=== PATIENT | male | born 1940 | race Caucasian/White ===

== ENCOUNTER 2022-07-24 08:21 | Emergency (ER) | payer MEDICARE, OTHER, SELFPAY ==
[2022-07-24] VITALS (19 sets, daily range): BP systolic 101–153; BP diastolic 51–87; PULSE 37–144; RESP 12–16; TEMP 36.7; O2SAT 96–99
--- NOTE | 2022-07-24 09:15 | DI.RAD_ITS ---
Exam(s) XR SHOULDER RT COMPLETE 2+V EXAM: XR SHOULDER RT COMPLETE 2+V CLINICAL HISTORY: right shoulder pain. TECHNIQUE: 2D digital imaging was performed. COMPARISON: No exams were available for comparison FINDINGS: Six views No evidence of acute fracture or dislocation. No soft tissue calcifications. There is mild diminuti on of the subacromial space and there is also slight upward subluxation of the humeral head in the gl enoid fossa.. This may indicate presence of significant rotator cuff pathology-tear. There are smal l degenerative cysts in the greater tuberosity. No osteophytes. No glenohumeral joint space narrowi ng and the AC joint appears unremarkable. IMPRESSION: No fracture or dislocation. Subtle indirect signs of possible rotator cuff pathology. DATA REPOSITORY: RADIATION DOSE DELIVERED:
--- NOTE | 2022-07-24 09:15 | RT.EKG_ITS ---
APPROVED REPORT Exam: Resting ECG Reason for Exam: bradycardia Patient Location: E HR:39 bpm ECG Measurements Heart Rate 39 AXIS OR 185 P 9 QRSd 148 QRS 15 QT 473 T 4 QTc 381 Conclusion Sinus bradycardia...rate< 60 Right bundle branch block...QRSd>120, terminal axis(90,270). Sinus. RBBB. No STEMI. I have reviewed and interpreted ECG and agree with software generated interpretation.
[2022-07-24 09:49] LABS: Abs Immature Grans 0.14 10^3/uL (0.0-0.06); Absolute Eosinophil Count 0.01 10^3/uL (0.0-0.7); Absolute Lymphocyte Count 1.16 10^3/uL (1.2-3.4); Absolute Monocyte Count 0.65 10^3/uL (0.1-0.8); Absolute Neutrophil Count 0.97 10^3/uL (1.2-6.7); Eosinophils % 0.3; HCT 33.6 % (40.0-50.0); Immature Grans % 4.8; Lymphocytes % 39.6; MCHC 32.7 % (32.0-36.0); MCV 107 fL (80-95); MPV 11.9 fL (8.0-11.0); Monocytes % 22.2; Neutrophils % 33.1; RBC 3.14 10^6/uL (4.36-5.78); RDW-SD 54.7 fL; WBC 2.93 10^3/uL (4.4-10.8)
[2022-07-24 10:09] LABS: ALT 22 U/L (16-63); AST 19 U/L (15-37); Albumin 3.8 g/dL (3.4-5.0); Alkaline Phosphatase 47 U/L (46-116); Anion Gap 4.6 mmol/L (3-11); BUN 19 mg/dL (7-18); Bilirubin, Total 0.4 mg/dL (0.2-1.0); CO2 33.4 mmol/L (21.0-32.0); Calcium 9.5 mg/dL (8.5-10.1); Chloride 103 mmol/L (98-107); Estimated GFR 74.68 (mL/min/1.73m2); Glucose 79 mg/dL (74-106); Magnesium 1.8 mg/dL (1.8-2.4); Potassium 3.8 mmol/L (3.5-5.1); Sodium 141 mmol/L (136-145); Total Protein 7.5 g/dL (6.4-8.2)
[2022-07-24 10:22] LABS: Diff Comment RBC Morph Reviewed; Platelet Count 97 10^3/uL (130-400)
[2022-07-24 10:23] LABS: Anisocytosis 1+; Basophilic Stippling Present; Macrocytosis 2+; Polychromasia Present
--- NOTE | 2022-07-24 10:34 | DI.VRAD_ITS ---
PROCEDURE INFORMATION: Exam: XR Right Shoulder Exam date and time: 07/24/2022 10:05 AM Age: 82 years old Clinical indication: Other: Right shoulder pain TECHNIQUE: Imaging protocol: Radiologic exam of the Right shoulder. Views: 2 or more views. COMPARISON: No relevant prior studies available. FINDINGS: Bones/joints: Glenohumeral and acromioclavicular joints are intact. Acromial humeral interval is maintained. Soft tissues: Normal. No calcification. IMPRESSION: Normal shoulder Dictated and Authenticated by: Hugo Martinez MD. Ordering:NATALIE Borges MD
--- NOTE | 2022-07-24 10:47 | ED.GENADUL_ITS ---
Discharge Plan Disposition Patient Disposition: HOME Condition: Stable Discharge Details Clinical Impression: Cervical radiculopathy at C8, Acute shoulder pain, Bradycardia, Anemia Primary Care Provider: None,None ED Provider: Katerina Meza Home Meds and New Rx's Prescriptions: New dexamethasone [Decadron] 4 mg tablet 4 mg PO DAILY Qty: 5 0RF Continued aspirin 81 mg Tablet,Delayed Release (Dr/Ec) 81 mg PO DAILY AM rosuvastatin [Crestor] 10 mg Tablet 10 mg PO DAILY Spiriva with HandiHaler 18 mcg Capsule, W/Inhalation Device 1 cap INHALATION DAILY fenofibrate 150 mg Capsule 150 mg PO DAILY AM fluocinonide 0.05 % Ointment TOPICAL PRN PRN memantine 10 mg Tablet 10 mg PO HS [id number]-epa-fish oil 350-400 mg Capsule 1,000 PO DAILY AM B12 5,000-100 mcg Lozenge 1 siria SUBLINGUAL DAILY AM acetaminophen 325 mg Tablet 650 mg PO PRN PRN albuterol sulfate [Ventolin HFA] 90 mcg/actuation Hfa Aerosol Inhaler 2 puff INHALATION PRN PRN Discontinued metoprolol succinate [Toprol XL] 25 mg Tablet Extended Release 24 Hr 25 mg PO DAILY AM Rx Instructions: pt is taking 1/2 tab Discharge Instructions Instructions: Anemia (ED), Shoulder Pain (ED) Additional Instructions: Not taking your Toprol, this is causing her heart rate and blood pressure to be very low and probably contributing to your lightheadedness Use caution when going from sitting to standing Take Decadron as prescribed, I suspect you have a herniated disc You will need to establish care with a provider here, is very importantly have outpatient reassessment Apply for Voltaren gel to your shoulder and take Tylenol 650 mg every 4-6 hours as needed for discomfort. Continue to range her shoulder so it does not become stiff Should he develop worsening symptoms, chest pain, shortness of breath, please return immediately to the emergency department for Recommend checking your blood pressure and your pulse daily until you have your an appointment with your doctor on Monday. Medical Decision Making Patient appears well, he is ambulatory with heart rate in the 60s although he is quite bradycardic in the emergency department, I suspect by that he this is why he has been lightheaded for the past several months as he dips down as low as 38, he is asymptomatic with this Will remove the Toprol from his medication list, he took a dose today, he will not continue this His labs are reassuring when compared to his labs drawn in June at [facility] I suspect that his symptoms are related to a cervical radiculopathy given his intermittent fourth and fifth digit involvement Placed on steroids, he will use Voltaren gel, he will take Tylenol as needed for discomfort Is given low threshold to return should he have new or worsening complaints Will need close outpatient follow-up with PCP, has televisit with his PCP in [place] on Monday Have placed him on the PCP follow-up with Have an appointment with his scientific associate within the next month Discharged home and her son and all conversations were had and presents with bone Medical Records Medical records reviewed: Yes I reviewed the patient's medical records. Lab Data Lab results reviewed: Yes I reviewed the patient's lab results. HPI General Date/Time Provider Initiated Documentation: 07/24/22 08:36 . HPI Narrative: This 82-year-old male presents with report of right shoulder pain for the past week. He denies any known trauma. He has had intermittent tingling to his fourth and fifth digits that are largely exacerbated when he does repetitive motion with the affected hand. He denies any weakness, chest pain, shortness of breath. He has intermittent lightheadedness that he is reporting for the past several months. He states that he called his doctor about this and was taken off Crestor last week. He states he is not had symptoms for approximately a week. She does state that he has an appointment on Monday and has been keeping track of his blood pressure and pulse because they have been low over the course of the past several months. He is still taking his Toprol as prescribed. Again is denying any symptoms currently aside from some pain to his right shoulder. Related Data Home Medications Medication Instructions Recorded Confirmed acetaminophen 325 mg tablet 650 mg PO PRN PRN 07/24/22 07/24/22 albuterol sulfate 90 mcg/actuation 2 puff inhalation PRN PRN 07/24/22 07/24/22 aerosol inhaler (Ventolin HFA) aspirin 81 mg tablet,delayed 81 mg PO DAILY AM 07/24/22 07/24/22 release cyanocobalamin (B12)-cobamamide 1 siria sublingual DAILY AM 07/24/22 07/24/22 5,000 mcg-100 mcg sublingual lozenge (B12) dexamethasone 4 mg tablet 4 mg PO DAILY #5 tabs 07/24/22 (Decadron) fenofibrate 150 mg capsule 150 mg PO DAILY AM 07/24/22 07/24/22 fluocinonide 0.05 % topical applic topical PRN PRN 07/24/22 ointment memantine 10 mg tablet 10 mg PO HS 07/24/22 07/24/22 -pcx-glr-other [id number] 1,000 PO DAILY AM 07/24/22 oil 350 mg- 400 mg capsule rosuvastatin 10 mg tablet (Crestor) 10 mg PO DAILY 07/24/22 07/24/22 tiotropium bromide 18 mcg capsule 1 cap inhalation DAILY 07/24/22 07/24/22 with inhalation device (Spiriva with HandiHaler) Previous Rx's Medication Instructions Recorded dexamethasone 4 mg tablet 4 mg PO DAILY #5 tabs 07/24/22 (Decadron) Allergies Allergy/AdvReac Type Severity Reaction Status Date / Time No Known Allergies Allergy Unverified 07/24/22 08:40 General Stated Complaint: Orthopedic PATRICK: 4 Review of Systems All systems reviewed & are unremarkable except as noted in HPI and below PFSH All Active Problems (Updated 07/24/22 @ 10:55 by SUSAN Lopez) Cervical radiculopathy at C8 (Acute) Acute shoulder pain (Acute) Bradycardia (Acute) Anemia (Chronic) Social History Smoking risk assessment performed?: No Do you feel safe at home: Yes Do you feel safe in your relationship?: Yes Exam Const General: cooperative, comfortable, no acute distress and well developed Orientation: alert and oriented x3 HENMT Head: normal to inspection Eyes Pupils: PERRL Neck Other: no midline tenderness Resp Effort & Inspection: normal respiratory effort Auscultation: clear to auscultation bilaterally Cardio Rate: bradycardic Rhythm: regular rhythm Heart Sounds: no murmurs Skin General skin exam: no rashes or lesions noted Neuro General: patient alert and patient oriented x3 Extrem Other: Right shoulder with tenderness decreased rom Course Vital Signs Vital signs: Vital Signs Temperature 36.7 C 07/24/22 08:34 Pulse 42 L 07/24/22 08:34 Respiratory Rate 16 07/24/22 08:34 Blood Pressure 153/51 H 07/24/22 08:34 Pulse Oximetry 98 07/24/22 08:34 Temperature 36.7 C 07/24/22 08:34 Temperature Source Temporal Artery Scan 07/24/22 08:34 Pulse 42 L 07/24/22 08:34 Respiratory Rate 16 07/24/22 08:34 Respiratory Effort 07/24/22 09:47 Blood Pressure 153/51 H 07/24/22 08:34 Blood Pressure Position Sitting 07/24/22 08:34 Pulse Oximetry 98 07/24/22 08:34 Oxygen Delivery Method Room Air 07/24/22 08:34 Oxygen Flow Rate 0 07/24/22 08:34 Lab/Test Results Lab/Test Results: Laboratory Tests Range/Units 07/24/22 07/24/22 09:45 09:45 WBC (4.4-10.8) 10^3/uL 2.93 L RBC (4.36-5.78) 10^6/uL 3.14 L Hgb (13.5-17.5) g/dL 11.0 L Hct (40.0-50.0) % 33.6 L MCV (80-95) fL 107 H MCH (27.0-33.0) pg 35.0 H MCHC (32.0-36.0) % 32.7 RDW (11.8-14.1) % 14.0 Plt Count (130-400) 10^3/uL 97 L MPV (8.0-11.0) fL 11.9 H Immature Gran % 4.8 Neutrophils % 33.1 Lymphocytes % 39.6 Monocytes % 22.2 Eosinophils % 0.3 Basophils % 0.0 Nucleated RBC % (0.0-0.3) % 0.0 Absolute Neutrophils (1.2-6.7) 10^3/uL 0.97 L Absolute Lymphocytes (1.2-3.4) 10^3/uL 1.16 L Absolute Monocytes (0.1-0.8) 10^3/uL 0.65 Absolute Eosinophils (0.0-0.7) 10^3/uL 0.01 Absolute Basophils (0.0-0.2) 10^3/uL 0.00 RBC Morphology See Below Polychromasia Present Basophilic Stippling Present Anisocytosis 1+ Macrocytosis 2+ Sodium (136-145) mmol/L 141 Potassium (3.5-5.1) mmol/L 3.8 Chloride (98-107) mmol/L 103 Carbon Dioxide (21.0-32.0) mmol/L 33.4 H Anion Gap (3-11) mmol/L 4.6 BUN (7-18) mg/dL 19 H Creatinine (0.70-1.30) mg/dL 1.0 Est GFR (CKD-EPI 2020) (mL/min/1.73m2) 74.68 Glucose (74-106) mg/dL 79 Calcium (8.5-10.1) mg/dL 9.5 Magnesium (1.8-2.4) mg/dL 1.8 Total Bilirubin (0.2-1.0) mg/dL 0.4 AST (15-37) U/L 19 ALT (16-63) U/L 22 Alkaline Phosphatase (46-116) U/L 47 Total Protein (6.4-8.2) g/dL 7.5 Albumin (3.4-5.0) g/dL 3.8
--- NOTE | 2022-07-24 10:58 | NUR.NOTE ---
Nursing Note: Katerina requesting assistance with establishing a primary care provider. I have added this information to the care management CLB
--- NOTE | 2022-07-24 18:06 | NUR.NOTE ---
Nursing Note:Katerina requesting patient establish care with a PCP noted on Care management form CLB
== END 2022-07-24 11:03 | disposition home or self-care (01) ==
PROVIDERS: Emergency Provider Physician Assistant
DX: M54.12 Radiculopathy, cervical region (principal); M25.511 Pain in right shoulder; D64.9 Anemia, unspecified; R00.1 Bradycardia, unspecified
CPT/HCPCS: 36415; 80053; 93005; 99284; 73030; 83735; 85025; 93010

== ENCOUNTER 2022-08-06 21:02 | Emergency (ER) | payer MEDICARE, OTHER, SELFPAY ==
[2022-08-06 21:11] VITALS: BP 148/87; PULSE 64; RESP 18; TEMP 36.4; O2SAT 96
--- NOTE | 2022-08-06 21:30 | DI.RAD_ITS ---
Exam(s) XR ABDOMEN FLAT UPRIGHT EXAM: XR ABDOMEN FLAT UPRIGHT CLINICAL HISTORY: constipation, r/o air/fluid levels. TECHNIQUE: 2D digital imaging was performed. COMPARISON: No exams were available for comparison FINDINGS: Two views-supine and upright. Sternotomy wires are noted. Visualized lung bases are clear. No evidence of bowel obstruction or free air. Moderate amount of fecal material seen throughout the right-side of the colon. No prominent fecal material in left side of the colon nor in the rectum. N o obvious masses nor bowel displacement. Kidneys are obscured by fecal material. Cannot assess for calculi therein. Regional bones exhibits some multilevel height loss in the vertebral bodies, probab ly not acute. IMPRESSION: As above. No bowel obstruction or free air. There are few small calcifications in the right-side of the pelvis, possibly vascular but cannot excl ude urinary tract calculi. DATA REPOSITORY: RADIATION DOSE DELIVERED:
--- NOTE | 2022-08-06 21:43 | ED.GENADUL_ITS ---
Discharge Plan Disposition Patient Disposition: HOME Condition: Stable Discharge Details Clinical Impression: Constipation, Hemorrhoid, Rectal bleeding Primary Care Provider: Chinedu Vargas ED Provider: Sheri Corrales Home Meds and New Rx's Prescriptions: Continued multivitamin Tablet 1 tab PO QAM cholecalciferol (vitamin D3) 250 mcg (10,000 unit) tablet 250 mcg PO DAILY aspirin 81 mg Tablet,Delayed Release (Dr/Ec) 81 mg PO DAILY AM rosuvastatin [Crestor] 10 mg Tablet 10 mg PO DAILY Spiriva with HandiHaler 18 mcg Capsule, W/Inhalation Device 1 cap INHALATION DAILY fenofibrate 150 mg Capsule 150 mg PO DAILY AM fluocinonide 0.05 % Ointment 1 applic TOPICAL PRN PRN memantine 10 mg Tablet 10 mg PO HS yvunp-4f-oei-epa-fish oil 350-400 mg Capsule 1,000 cap PO DAILY AM B12 5,000-100 mcg Lozenge 1 siria SUBLINGUAL DAILY AM acetaminophen 325 mg Tablet 650 mg PO PRN PRN albuterol sulfate [Ventolin HFA] 90 mcg/actuation Hfa Aerosol Inhaler 2 puff INHALATION PRN PRN Discharge Instructions Instructions: Constipation (ED), Hemorrhoids (ED), Rectal Bleeding (ED) Additional Instructions: Drink plenty of fluids and get plenty of rest. Avoid straining with bowel movements as this can cause or worsen hemorrhoids. Continue your MiraLAX and stool softeners daily as directed. If you have no relief of constipation, you can try [id number] suppositories, magnesium citrate as directed or enemas. Follow-up with your primary care doctor in 1 week. Return to the emergency department with any worsening or new concerning symptoms such as fever, vomiting, abdominal pain, worsening rectal bleeding or any other concerns. Discharge Data Discharge Date/Time-TO BE ENTERED AT DEPARTURE: 08/06/22 23:07 Discharge Physician: Sheri Corrales Medical Decision Making 2119 -- 82-year-old male with a history of coronary artery disease, CABG, hernia repair, appendectomy presents with constipation for the past 2 days with rectal bleeding and a bulge from his rectum this evening after attempting digital disimpaction. Vitals within normal limits. Patient appears comfortable and nontoxic. His abdomen is soft and nontender. Visual inspection externally of rectum note is 1 x 1 cm nonthrombosed hemorrhoid. This area is nontender and there is no surrounding cellulitis. Guaiac noted brown stool and negative for blood. As patient has no complaint of fever, vomiting or abdominal pain, history and presentation does not appear consistent with small bowel obstruction or aaa, dissection or an acute abdomen. Will refer for abdominal x-ray and if unremarkable, will attempt digital disimpaction. 2250 --patient able to have a small bowel movement and feels much better would like to go home. Abdominal x-ray still pending but there are no obvious signs of air-fluid levels. Patient denies any nausea, vomiting or abdominal pain. Patient advised to continue to stay hydrated with a balanced diet and stay active. Advised to continue MiraLAX and stool softeners and if needed suppository, magnesium citrate or enema. Advised to follow up with the primary care doctor for re-evaluation. Usual and customary return precautions given prior to discharge. X-ray reviewed after patient discharge and report notes moderate stool throughout colon but no obvious evidence of obstruction. Medical Records Medical records reviewed: Yes I reviewed the patient's medical records. Imaging Data Radiologic Study: Radiologist's impression: XR Abdomen Exam date and time: 08/06/2022 9:49 PM Age: 82 years old Clinical indication: Other: Constipation, R/O air/fluid levels TECHNIQUE: Imaging protocol: Radiologic exam of the abdomen. Views: 2 Views. Upright and supine views. COMPARISON: No relevant prior studies available. FINDINGS: Lungs: The visualized lung bases are clear. Heart/Mediastinum: Heart size normal. Gastrointestinal tract: Moderate stool throughout the colon suggesting constipation. There are few air-filled small bowel loops in the left upper quadrant and left mid abdominal region, with a few fluid levels demonstrated in these distributions. No differential fluid levels specifically indicative of obstruction are identified. An air distended loop of bowel beneath the left hemidiaphragm is probably splenic flexure. No evidence of pneumatosis or portal gas. Intraperitoneal space: No free air is evident. 4 mm rounded calcification projects in the right mid abdominal region on the upright view. This is nonspecific. It is a bit far too lateral for renal stone. It might represent a liver granuloma, small gallstone, flank granuloma, or appendicolith. Organs: No evidence of organomegaly. Bones/joints: Prior median sternotomy. No acute osseous abnormalities. Moderate thoracolumbar spondylosis. Other findings: No gross soft tissue masses. IMPRESSION: 1. Moderate stool throughout the colon suggesting constipation. 2. No gross features of small-bowel obstruction. 3. A 4 mm calcification projects in the right lateral mid abdominal region on the upright view only. Please see differential considerations above. HPI General Mode of arrival: ambulatory . Date/Time Provider Initiated Documentation: 08/06/22 21:16 . Limitations to Documentation: no limitations . Information obtained by: patient . HPI Narrative: Patient is an 82yo M w/ a h/o coronary artery disease, CABG, hernia repair and appendectomy presents to the ED w/ a c/o constipation for the past few days and rectal bleeding tonight when he attempted to digitally disimpact stool. Patient states he normally has a bowel movement once daily but has not had a bowel meant for the past 2 days. He states he has been taking MiraLAX daily but stopped recently because he was having normal bowel movements. He states his previous doctor had recommended he take MiraLAX every day but states he had been eating more regularly and was more active and felt he did not need the MiraLAX. He states since he became constipated over the past few days he has restarted taking his MiraLAX. He states he was straining with having a bowel movement this evening and attempted to digitally disimpact his stool approximately 5 times and felt a hard ball of stool in his rectum. He states after he attempted this he noted bright red blood in the toilet. He denies any significant rectal bleeding. He denies fever, nausea, vomiting, abdominal pain or urinary symptoms. Related Data Home Medications Medication Instructions Recorded Confirmed acetaminophen 325 mg tablet 650 mg PO PRN PRN 07/24/22 08/06/22 albuterol sulfate 90 mcg/actuation 2 puff inhalation PRN PRN 07/24/22 08/06/22 aerosol inhaler (Ventolin HFA) aspirin 81 mg tablet,delayed 81 mg PO DAILY AM 07/24/22 08/06/22 release cyanocobalamin (B12)-cobamamide 1 siria sublingual DAILY AM 07/24/22 08/06/22 5,000 mcg-100 mcg sublingual lozenge (B12) fenofibrate 150 mg capsule 150 mg PO DAILY AM 07/24/22 08/06/22 fluocinonide 0.05 % topical 1 applic topical PRN PRN 07/24/22 08/06/22 ointment memantine 10 mg tablet 10 mg PO HS 07/24/22 08/06/22 -yyo-sit-other [id number] 1,000 cap PO DAILY AM 07/24/22 08/06/22 oil 350 mg- 400 mg capsule rosuvastatin 10 mg tablet (Crestor) 10 mg PO DAILY 07/24/22 08/06/22 tiotropium bromide 18 mcg capsule 1 cap inhalation DAILY 07/24/22 08/06/22 with inhalation device (Spiriva with HandiHaler) cholecalciferol (vitamin D3) 250 250 mcg PO DAILY 08/02/22 08/06/22 mcg (10,000 unit) tablet multivitamin 1 tab PO QAM 08/02/22 08/06/22 Allergies Allergy/AdvReac Type Severity Reaction Status Date / Time No Known Allergies Allergy Unverified 08/02/22 09:54 General Stated Complaint: GI Bleed PATRICK: 4 Review of Systems All systems reviewed & are unremarkable except as noted in HPI and below Constitutional Constitutional: Denies chills, Denies excessive sweating, Denies fatigue, Denies fever(s), Denies weakness and Denies weight loss Eyes Eyes: Reports system reviewed and no additional complaints, except as documented and Denies blurry vision ENT Ears, Nose, Mouth, and Throat: Denies vertigo, Denies dizziness, Denies otalgia, Denies nasal congestion, Denies sore throat and Denies throat swelling Cardiovascular Cardiovascular: Denies chest pain, Denies syncope, Denies rapid heart rate and Denies dyspnea Respiratory Respiratory: Denies chest congestion, Denies cough, Denies pain on inspiration and Denies dyspnea Gastrointestinal Gastrointestinal: Denies abdominal pain, Reports hematochezia, Reports constipation, Denies diarrhea and Denies vomiting Genitourinary Genitourinary: Denies hematuria, Denies dysuria and Denies flank pain Musculoskeletal Musculoskeletal: Denies back pain and Denies joint swelling Integumentary/Breasts Skin/Breast: Denies lesions and Denies rash Neurologic Neurologic: Denies behavioral changes, Denies confusion, Denies vertigo, Denies dizziness, Denies syncope, Denies localized weakness and Denies weakness Psychiatric Psychiatric: Denies behavioral changes, Denies confusion and Denies depression Endocrine Endocrine: Denies excessive sweating and Denies fatigue Hematologic/Lymphatic Hematologic/Lymphatic: Denies easy bruising and Denies lymphadenopathy Allergic/Immunologic Allergic/Immunologic: Denies throat swelling PFSH All Active Problems (Updated 08/06/22 @ 23:04 by Sheri Corrales DO) Constipation (Acute) Hemorrhoid (Acute) Rectal bleeding (Acute) Cervical radiculopathy at C8 (Acute) Acute shoulder pain (Acute) Bradycardia (Acute) Anemia (Chronic) Medical History (Updated 08/06/22 @ 23:04 by Sheri Corrales DO) Coronary arteriosclerosis Surgical History (Updated 08/06/22 @ 22:23 by Sheri Corrales DO) History of appendectomy 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 years prior History of hernia repair Social History Smoking/Tobacco Use Status: Former Tobacco Use Smoking risk assessment performed?: Yes Alcohol Intake: never Drug use: Never Substance use type: does not use Do you feel safe at home: Yes Do you feel safe in your relationship?: Yes Exam Const General: cooperative and healthy appearing Orientation: alert, awake and oriented x3 HENMT Head: normal to inspection Ears: hearing grossly normal bilaterally and external ears normal General nose exam: external nose normal Face and sinus: normal facial exam Mouth: oral mucosae normal Throat: posterior oropharynx normal Eyes General: appearance normal, both eyes and all related structures Eyelids: eyelids normal Neck Neck: normal visual inspection Lymphatic: no lymphadenopathy noted Chest Chest: normal inspection of the chest Resp Effort & Inspection: normal respiratory effort and able to speak in complete sentences Auscultation: clear to auscultation bilaterally Cardio Rate: regular rate Rhythm: regular rhythm GI Inspection: normal to inspection Palpation: soft, not firm, no guarding, no hepatosplenomegaly, no masses and nontender Auscultation: hypoactive bowel sounds Other: 1x1cm nonthrombosed hemorrhoid noted externally. Skin General skin exam: no rashes or lesions noted Neuro General: patient alert and patient awake Cognition: normal cognition Speech: speech normal Gait: normal gait Motor: muscle tone normal throughout Sensory Exam: no sensory deficits noted Extrem General: normal to inspection, full ROM and capillary refill normal Psych Appearance: grossly normal Mental Status: mental status grossly normal Speech and Movement: speech and movement normal Affect: normal affect Thought Process: normal Course Vital Signs Vital signs: Vital Signs Temperature 97.5 F L 08/06/22 21:11 Pulse 64 08/06/22 21:11 Respiratory Rate 18 08/06/22 21:11 Blood Pressure 148/87 H 08/06/22 21:11 Pulse Oximetry 96 08/06/22 21:11 Temperature 97.5 F L 08/06/22 21:11 Temperature Source Oral 08/06/22 21:11 Pulse 64 08/06/22 21:11 Respiratory Rate 18 08/06/22 21:11 Respiratory Effort Non-Labored 08/06/22 21:19 Blood Pressure 148/87 H 08/06/22 21:11 Pulse Oximetry 96 08/06/22 21:11 Pain Level 10 08/06/22 21:11
[2022-08-06 23:18] VITALS: BP 139/72; PULSE 57; RESP 16; TEMP 36.4; O2SAT 97
--- NOTE | 2022-08-06 23:27 | DI.VRAD_ITS ---
PROCEDURE INFORMATION: Exam: XR Abdomen Exam date and time: 08/06/2022 9:49 PM Age: 82 years old Clinical indication: Other: Constipation, R/O air/fluid levels TECHNIQUE: Imaging protocol: Radiologic exam of the abdomen. Views: 2 Views. Upright and supine views. COMPARISON: No relevant prior studies available. FINDINGS: Lungs: The visualized lung bases are clear. Heart/Mediastinum: Heart size normal. Gastrointestinal tract: Moderate stool throughout the colon suggesting constipation. There are few air-filled small bowel loops in the left upper quadrant and left mid abdominal region, with a few fluid levels demonstrated in these distributions. No differential fluid levels specifically indicative of obstruction are identified. An air distended loop of bowel beneath the left hemidiaphragm is probably splenic flexure. No evidence of pneumatosis or portal gas. Intraperitoneal space: No free air is evident. 4 mm rounded calcification projects in the right mid abdominal region on the upright view. This is nonspecific. It is a bit far too lateral for renal stone. It might represent a liver granuloma, small gallstone, flank granuloma, or appendicolith. Organs: No evidence of organomegaly. Bones/joints: Prior median sternotomy. No acute osseous abnormalities. Moderate thoracolumbar spondylosis. Other findings: No gross soft tissue masses. IMPRESSION: 1. Moderate stool throughout the colon suggesting constipation. 2. No gross features of small-bowel obstruction. 3. A 4 mm calcification projects in the right lateral mid abdominal region on the upright view only. Please see differential considerations above. Dictated and Authenticated by: Larry Greco MD. Ordering:JB Wade MD
== END 2022-08-06 23:07 | disposition home or self-care (01) ==
PROVIDERS: Emergency Provider Physician Assistant; PCP Family Medicine
DX: K59.00 Constipation, unspecified (principal); K62.5 Hemorrhage of anus and rectum; K64.4 Residual hemorrhoidal skin tags
CPT/HCPCS: 99283; 74019; 99284

== ENCOUNTER 2022-08-09 08:46 | Outpatient (RCR) | payer MEDICARE, OTHER, SELFPAY ==
--- NOTE | 2022-08-09 08:45 | HOLTER_ITS ---
APPROVED REPORT Conclusion This is a 48-hour Holter monitor ordered for bradycardia Rhythm throughout was sinus with an average heart rate of 50. Minimum was 40, maximum 84 There were moderately frequent ventricular ectopic beats, couplets and triplets There were moderately frequent atrial premature beats, atrial pairs and triplets There was no atrial fibrillation, no high-grade AV block, no pauses greater than 3 seconds. Longest RR interval was 2.53 seconds No patient symptoms were reported
== END 2022-09-05 23:59 | disposition home or self-care (01) ==
LOC: CARDOPNVT 08:46
PROVIDERS: PCP Family Medicine; Visit Provider Family Medicine
DX: R00.1 Bradycardia, unspecified (principal)
CPT/HCPCS: 93227; 93225; 93226

== ENCOUNTER 2022-08-25 03:43 | Outpatient (CLI) | payer MEDICARE, OTHER, SELFPAY ==
[2022-08-25 07:11] LABS: Abs Immature Grans 0.05 10^3/uL (0.0-0.06); HCT 33.3 % (40.0-50.0); HGB 10.9 g/dL (13.5-17.5); MCHC 32.7 % (32.0-36.0); MCV 107 fL (80-95); MPV 11.5 fL (8.0-11.0); Platelet Count 125 10^3/uL (130-400); RBC 3.11 10^6/uL (4.36-5.78); RDW 13.5 % (11.8-14.1); RDW-SD 53.2 fL; WBC 3.06 10^3/uL (4.4-10.8)
[2022-08-25 08:02] LABS: Absolute Eosinophil Count 0.06 10^3/uL (0.0-0.7); Absolute Monocyte Count 0.37 10^3/uL (0.1-0.8); Absolute Neutrophil Count 0.67 10^3/uL (1.2-6.7); Atypical Lymphocytes % 8; Bands % 0
[2022-08-25 08:03] LABS: Absolute Basophil Count 0.03 10^3/uL (0.0-0.2); Diff Comment Manual Differential; Macrocytosis 1+; Metamyelocytes % 1
[2022-08-25 08:30] LABS: Calculated LDL 55 mg/dL (<100); Cholesterol 112 mg/dL (<200); HDL Cholesterol 52 mg/dL (40-60); Triglyceride 29 mg/dL (<150)
== END 2022-08-25 03:44 | disposition home or self-care (01) ==
LOC: LBO 03:43
PROVIDERS: Nurse Practitioner; PCP Family Medicine; Visit Provider Family Medicine
DX: I25.10 Atherosclerotic heart disease of native coronary artery without angina pectoris (principal); D64.9 Anemia, unspecified
CPT/HCPCS: 36415; 80061; 85025

== ENCOUNTER → 2022-09-06 02:17 | Outpatient (CLI) | payer MEDICARE, OTHER, SELFPAY ==
--- NOTE | 2022-09-06 07:57 | DI.CT_ITS ---
Exam(s) CT CHEST WO EXAM: CT CHEST WO CLINICAL HISTORY: f/u Lung nodule seen on outside scan in 06/25, r91.1. TECHNIQUE: Multi planar reconstructions were performed. CONTRAST MATERIAL: None COMPARISON: No exams were available for comparison FINDINGS: CHEST: LUNGS: There is a small 2-3 millimeter nodule in the left upper lobe, medially. Lower down the left lung there is some benign atelectasis lingular segment. No other significant focal left lung finding s. The right lung there are some benign-appearing increased markings laterally in upper lobe. No other significant focal right lung findings. No pleural effusions on either side. No significant findings in trachea and mainstem bronchi. MEDIASTINUM: There is no obvious hilar nor mediastinal adenopathy. Visualized thyroid unremarkable.No obvious axillary adenopathy CARDIAC: Sternotomy wires. Heart size normal. No pericardial effusion. Coronary artery calcificati on noted. Caliber thoracic aorta 3.8 cm in the ascending thoracic aorta. 3 cm proximal and mid desc ending thoracic aorta. VISUALIZED UPPER ABDOMEN:No significant findings OSSEOUS: No significant osseous lesions.No acute fractures.. IMPRESSION: 1. There is a 3 millimeter nodule in the medial aspect of the left upper lobe. No other pulmonary no dules identified. Prior outside CT scan is apparently not available time of this dictation. Addendu m will follow if we receive the prior outside CT scan images for comparison. 2. Other benign findings in both lungs as described above. No pleural effusions. 3. No intrathoracic adenopathy. Slightly prominent diameter of the thoracic aorta. Sternotomy wires noted. RADIATION DOSE DELIVERED: Total DLP DATA REPOSITORY: All CT scans at this facility are submitted to the National Radiology Data Registry (NRDR) Dose Index Registry (DIR) with the [employer] (A[employer]). RADIATION OPTIMIZATION: All CT scans at this facility use at least one of these dose optimization te chniques: automated exposure control; mA and/or kV adjustment per patient size (includes targeted exa ms where dose is matched to clinical indication); or iterative reconstruction.
== END ==
PROVIDERS: PCP Family Medicine; Visit Provider Family Medicine
DX: R91.1 Solitary pulmonary nodule (principal)
CPT/HCPCS: 71250

== ENCOUNTER → 2022-11-28 08:46 | Outpatient (BNVA) | payer MEDICARE, OTHER, SELFPAY | PROVIDERS: PCP Family Medicine; Referring Provider Family Medicine; Visit Provider Nurse Practitioner Gerontology | DX: Z80.42 Family history of malignant neoplasm of prostate (principal); R97.20 Elevated prostate specific antigen [PSA] | CPT/HCPCS: 36415; 51798; 99214 ==

== ENCOUNTER 2022-11-28 10:15 | Outpatient (REF) | payer MEDICARE, OTHER, SELFPAY ==
[2022-11-28 17:25] LABS: PSA, Screening 6.3 ng/mL (<=6.5)
== END 2022-11-28 10:16 | disposition home or self-care (01) ==
LOC: LBN 10:15
PROVIDERS: PCP Family Medicine; Visit Provider Nurse Practitioner Gerontology
DX: R97.20 Elevated prostate specific antigen [PSA] (principal); Z12.5 Encounter for screening for malignant neoplasm of prostate
CPT/HCPCS: 84153

== ENCOUNTER 2023-01-01 16:57 | Emergency (ER) | payer MEDICARE, OTHER, SELFPAY ==
[2023-01-01 17:01] VITALS: BP 153/61; PULSE 69; RESP 18; TEMP 37.3; O2SAT 94
--- NOTE | 2023-01-01 17:06 | DI.RAD_ITS ---
Exam(s) XR PORTABLE CHEST AP EXAM: XR PORTABLE CHEST AP CLINICAL HISTORY: Productive cough, PUI TECHNIQUE: 2D digital imaging was performed of the chest. One image was obtained. An AP view was ob tained. COMPARISON: CR CHEST 2 VIEWS FRONTAL/LATERAL from 12/17/2021 FINDINGS: MEDIASTINUM: Normal. HEART: Normal. Status post CABG. PULMONARY VASCULATURE: Normal. LUNGS: Clear. PLEURAL SPACE: No pleural effusion or pneumothorax. BONE:Within normal limits for the patient's age. Median sternotomy wires are present. OTHER FINDINGS:Normal. IMPRESSION: No acute pulmonary findings. DATA REPOSITORY: RADIATION DOSE DELIVERED:
--- NOTE | 2023-01-01 17:17 | W.ED.GENAD ---
Discharge Plan Disposition Patient Disposition: Home Discharge Details Clinical Impression: Bronchitis Primary Care Provider: Chinedu Vargas ED Provider: Shaye Herzog Home Meds and New Rx's Prescriptions: New doxycycline hyclate 100 mg tablet 100 mg PO BID 10 Days Qty: 20 0RF Rx Instructions: Take one tablet twice daily x 10 days No Action multivitamin Tablet 1 tab PO QAM polyethylene glycol 3350 17 gram/dose powder 17 g PO DAILY Rx Instructions: Take 17 g once daily. albuterol sulfate [Ventolin HFA] 90 mcg/actuation HFA aerosol inhaler 2 puff INHALATION PRN PRN (Reason: shortness of breath or wheezing) Qty: 8.5 6RF memantine 10 mg tablet 10 mg PO HS Qty: 90 3RF rosuvastatin [Crestor] 10 mg tablet 10 mg PO DAILY Qty: 90 3RF aspirin 81 mg Tablet,Delayed Release (Dr/Ec) 81 mg PO DAILY AM Spiriva with HandiHaler 18 mcg Capsule, W/Inhalation Device 1 cap INHALATION DAILY fenofibrate 150 mg Capsule 150 mg PO DAILY AM fluocinonide 0.05 % Ointment 1 applic TOPICAL PRN PRN [id number]-fish oil 350-400 mg Capsule 1,000 cap PO DAILY AM acetaminophen 325 mg Tablet 650 mg PO PRN PRN Discharge Instructions Instructions: Acute Bronchitis (ED) Additional Instructions: At this time your work-up is within normal limits however due to your symptoms and past medical history I will go ahead and prescribe you antibiotics. Take the antibiotics twice daily with yogurt or probiotic as directed. Follow up with primary care provider in 3-5 days. Return to ED sooner if any worsening shortness of breath, chest pain or concerns. Increase oral fluids. Please take Tylenol with food every 4-6 hours as needed for pain and swelling. Referrals: Chinedu Vargas DO [Primary Care Provider] - 5 days Medical Decision Making 82-year-old male with a past medical history of coronary artery bypass graft, COPD, leukopenia, GERD, obstructive sleep apnea, arthritis depression hyperlipidemia and vocal fatigue presents to the ER with a chief complaint of chills, productive cough with green sputum and feeling wobbly. Chills began this afternoon. He reports of the last couple days cough with green sputum. He denies any dizziness, no headache. He is speaking in full sentences. He does report some intermittent loss of voice which she is being followed by speech pathology and ear nose and throat for. He denies any chest pain. Denies any nausea vomiting diarrhea or problems urinating. 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 Platelets are low at 97 which they have been in the past. Glucose 134 the rest of his CMP is within normal limits. COVID flu and RSV PCR test is negative. On patient reevaluation he is resting in the bed he reports he feels okay. Vital signs remained stable no tachycardia no fever. Due to patient's symptoms of productive cough and chills will treat empirically for URI bronchitis due to patient's comorbidities. Patient given doxycycline first tablet here and prescription x10 days instructed on strict return instructions and to follow-up with PCP verbalized understanding is in agreement with the plan. This text was generated using TalkSessionation system, please disregard any oddities of phrase or misspellings. Imaging Data Radiologic Study: Imaging: X-Ray Radiologist's impression: Views: 1 view. COMPARISON: CT CHEST WO 09/06/2022 7:55 AM FINDINGS: Lungs: No airspace consolidation. Pleural spaces: No pleural effusion. No pneumothorax. Heart/Mediastinum: CABG. The cardiac silhouette is upper limits of normal. Bones/joints: Median sternotomy wires. No displaced fracture. IMPRESSION: No acute findings. Impression new. Chronic findings as described. HELLEN ALVARADO Preliminary Radiology Report. Dictated and Authenticated by: Ping Moon MD [facility] General Mode of arrival: ambulatory. Date/Time Provider Initiated Documentation: 01/01/23 16:57. Limitations to Documentation: no limitations. Information obtained by: patient, RN notes reviewed and old records reviewed. HPI Narrative: 82-year-old male with a past medical history of coronary artery bypass graft, COPD, leukopenia, GERD, obstructive sleep apnea, arthritis depression hyperlipidemia and vocal fatigue presents to the ER with a chief complaint of chills, productive cough with green sputum and feeling wobbly. Chills began this afternoon. He reports of the last couple days cough with green sputum. He denies any dizziness, no headache. He is speaking in full sentences. He does report some intermittent loss of voice which she is being followed by speech pathology and ear nose and throat for. He denies any chest pain. Denies any nausea vomiting diarrhea or problems urinating. Related Data Home Medications Medication Instructions Recorded Confirmed acetaminophen 325 mg tablet 650 mg PO PRN PRN 07/24/22 01/01/23 aspirin 81 mg tablet,delayed 81 mg PO DAILY AM 07/24/22 01/01/23 release fenofibrate 150 mg capsule 150 mg PO DAILY AM 07/24/22 01/01/23 fluocinonide 0.05 % topical 1 applic topical PRN PRN 07/24/22 01/01/23 ointment [id number]-cuj-rlc-other [id number]-crqa 1,000 cap PO DAILY AM 07/24/22 01/01/23 oil 350 mg- 400 mg capsule tiotropium bromide 18 mcg capsule 1 cap inhalation DAILY 07/24/22 01/01/23 with inhalation device (Spiriva with HandiHaler) multivitamin 1 tab PO QAM 08/02/22 01/01/23 polyethylene glycol 3350 17 17 g PO DAILY 08/25/22 01/01/23 gram/dose oral powder albuterol sulfate 90 mcg/actuation 2 puff inhalation PRN PRN 09/22/22 01/01/23 aerosol inhaler (Ventolin HFA) shortness of breath or wheezing #8.5 grams memantine 10 mg tablet 10 mg PO HS #90 tabs 09/22/22 01/01/23 rosuvastatin 10 mg tablet (Crestor) 10 mg PO DAILY #90 tabs 09/22/22 01/01/23 doxycycline hyclate 100 mg tablet 100 mg PO BID 10 days #20 tabs 01/01/23 Previous Rx's Medication Instructions Recorded albuterol sulfate 90 mcg/actuation 2 puff inhalation PRN PRN 09/22/22 aerosol inhaler (Ventolin HFA) shortness of breath or wheezing #8.5 grams memantine 10 mg tablet 10 mg PO HS #90 tabs 09/22/22 rosuvastatin 10 mg tablet (Crestor) 10 mg PO DAILY #90 tabs 09/22/22 doxycycline hyclate 100 mg tablet 100 mg PO BID 10 days #20 tabs 01/01/23 Allergies Allergy/AdvReac Type Severity Reaction Status Date / Time No Known Allergies Allergy Unverified 01/01/23 17:06 General Stated Complaint: RespSymp PARTICK: 3 Review of Systems All systems reviewed & are unremarkable except as noted in HPI and below Cardiovascular Cardiovascular: Denies chest pain and Reports dyspnea on exertion Respiratory Respiratory: Reports change in phlegm color, Reports cough, Denies pain on inspiration and Reports dyspnea on exertion Gastrointestinal Gastrointestinal: Denies abdominal pain, Denies diarrhea, Denies nausea and Denies vomiting PFSH All Active Problems (Updated 01/01/23 @ 18:39 by Shaye Herzog NP) Bronchitis (Acute) Vocal fatigue (Acute) Bradycardia by electrocardiogram (Acute) 09/30/[address] Menes[facility] who states asymptomatic and will follow w him Unintentional weight loss (Acute) Lung nodule seen on imaging study (Acute) Pancytopenia (Acute) Vitamin D deficiency (Acute) PVC (premature ventricular contraction) (Acute) Prediabetes (Acute) Anemia (Chronic) Macrocytosis (Acute) Leukopenia (Acute) Benign prostatic hyperplasia (Chronic) Facet arthropathy, cervical (Acute) Insomnia due to medical condition (Acute) Myocardial infarct, old (Acute) GERD (gastroesophageal reflux disease) (Chronic) Obstructive sleep apnea of adult (Acute) COPD (chronic obstructive pulmonary disease) (Chronic) CAD (coronary artery disease) (Chronic) Depression (Chronic) Arthritis (Acute) Hyperlipidemia (Acute) Elevated PSA (Acute) Medical History Colonic polyp Coronary arteriosclerosis Diverticulosis Eczema left leg Emphysema of lung Surgical History H/O cataract (~08/08/19) Done out in [facility]. H/O vasectomy History of appendectomy History of coronary artery bypass graft (~06/01/00) 20 years prior History of hernia repair (~11/16/09) Right Groin S/P tonsillectomy and adenoidectomy Family History Brother Diabetes Heart disease Paternal Uncle Diabetes Heart disease Stroke Father Heart disease Social History Smoking/Tobacco Use Status: Former Tobacco Use tobacco type: cigarettes Quit Date: 07/26/00 Tobacco: How many years used: 40 Quit status: quit date established (05/31/2000) Smoking risk assessment performed?: Yes Alcohol Intake: never Drug use: Never Substance use type: does not use Adopted: No Caregiver/Support person: No Foster care: No Household members: family and children Housing: house Number of Children: 2 number of grandchildren: 3 Communication Needs: Hard of Hearing and Corrective Lenses Education Level: high school Do you need help understanding health information?: Often current occupation: RETIRED Pets and animals: Yes (1) Pets and animals: dog(s) Sexually active: No Do you think of yourself as: straight/heterosexual Current gender identity: male What is your relationship status?: How often do you talk on the phone with friends or family?: three or more times per week How often do you get together with friends or relatives?: decline to answer Do you belong to any clubs or organized social groups?: yes Panel score (0-1 are the most socially isolated patients): 2 What type of physical activity do you participate in: decline to answer Indira/Sabianist: Adventism Special indira needs: No Seatbelt use: always Drive intox or ride w/intox stunt driver: No Do you feel safe at home: Yes Do you feel safe in your relationship?: Yes Exam Narrative Exam Narrative: Constitutional: Alert and oriented x3. Appears stated age. Normal body habitus. Head: Normocephalic, no trauma. Eyes: Pupils PERRL, Red reflex noted, EOM's intact. Eyelids symmetrical without lesions, discharge, or swelling. ENT: Bilateral TM's WNL, External ear normal to inspection, no mastoid TTP, swelling, or erythema, Nasal turbinates WNL, no nasal discharge. Normal dentition, Posterior pharynx WNL, no exudate. Chest: RRR, Normal S1, S2, distal pulses intact. Resp: Lungs clear to auscultation bilaterally, no wheezes, rales, or rhonchi. Abdomen: Soft, non-distended, Normoactive bowel sounds all 4 quads. Musculoskeletal: Normal gait, 5/5 strength to all four extremities. Skin: No suspicious rashes or lesions. Capillary refill less than 2 sec. Neurologic: Cranial nerves II-XII intact. Alert and oriented x 3. Motor: No deficits noted. Sensory: Intact bilaterally all 4 extremities. Hematologic/Lymphatic: No ecchymosis, no lymphadenopathy. Course Vital Signs Vital signs: Vital Signs Temperature 37.3 C 01/01/23 17:01 Pulse 69 01/01/23 17:01 Respiratory Rate 18 01/01/23 17:01 Blood Pressure 153/61 H 01/01/23 17:01 Pulse Oximetry 94 01/01/23 17:01 Temperature 37.3 C 01/01/23 17:01 Temperature Source Oral 01/01/23 17:01 Pulse 69 01/01/23 17:01 Respiratory Rate 18 01/01/23 17:01 Respiratory Effort Normal, Non-Labored, Short of Breath 01/01/23 17:04 Blood Pressure 153/61 H 01/01/23 17:01 Blood Pressure Position Sitting 01/01/23 17:01 Pulse Oximetry 94 01/01/23 17:01 Oxygen Delivery Method Room Air 01/01/23 17:01 Oxygen Flow Rate 0 01/01/23 17:01 Pain Level 0 01/01/23 17:01
[2023-01-01 17:51] LABS: Abs Immature Grans 0.11 10^3/uL (0.0-0.06); Absolute Basophil Count 0.01 10^3/uL (0.0-0.2); Absolute Eosinophil Count 0.01 10^3/uL (0.0-0.7); Absolute Lymphocyte Count 1.31 10^3/uL (1.2-3.4); Absolute Monocyte Count 1.41 10^3/uL (0.1-0.8); Absolute Neutrophil Count 3.72 10^3/uL (1.2-6.7); Basophils % 0.2; Eosinophils % 0.2; HCT 32.7 % (40.0-50.0); HGB 10.7 g/dL (13.5-17.5); Immature Grans % 1.7; Lymphocytes % 19.9; MCH 35.2 pg (27.0-33.0); MCHC 32.7 % (32.0-36.0); MCV 108 fL (80-95); MPV 12.1 fL (8.0-11.0); Monocytes % 21.5; Neutrophils % 56.5; RBC 3.04 10^6/uL (4.36-5.78); RDW 13.4 % (11.8-14.1); RDW-SD 53.4 fL; WBC 6.57 10^3/uL (4.4-10.8)
[2023-01-01 18:05] LABS: ALT 19 U/L (16-63); AST 19 U/L (15-37); Albumin 3.7 g/dL (3.4-5.0); Alkaline Phosphatase 50 U/L (46-116); Anion Gap 6.7 mmol/L (3-11); BUN 17 mg/dL (7-18); Bilirubin, Total 0.6 mg/dL (0.2-1.0); CO2 29.3 mmol/L (21.0-32.0); CREATININE 1.1 mg/dL (0.70-1.30); Calcium 9.4 mg/dL (8.5-10.1); Chloride 104 mmol/L (98-107); Estimated GFR 66.61 (mL/min/1.73m2); Glucose 134 mg/dL (74-106); Potassium 3.8 mmol/L (3.5-5.1); Sodium 140 mmol/L (136-145); Total Protein 7.3 g/dL (6.4-8.2)
[2023-01-01 18:08] LABS: Diff Comment RBC Morph Reviewed; Macrocytosis 1+; Platelet Count 97 10^3/uL (130-400)
[2023-01-01 18:11] LABS: COVID-19 PCR Negative (Negative); Influenza A PCR Negative (Negative); Influenza B PCR Negative (Negative); RSV PCR Negative (Negative)
[2023-01-01 18:13] LABS: Source Nasopharynx
--- NOTE | 2023-01-01 18:25 | DI.VRAD_ITS ---
Addendum created by Ping Moon MD on 01/01/2023 6:24:51 PM EST: Correction of a typographical error in the impression as follows: IMPRESSION: No acute findings. Chronic findings as described. Initial report created on 01/01/2023 6:24:28 PM EST: PROCEDURE INFORMATION: Exam: XR Chest Exam date and time: 01/01/2023 5:50 PM Age: 82 years old Clinical indication: Other: Productive cough, pui TECHNIQUE: Imaging protocol: Radiologic exam of the chest. Views: 1 view. COMPARISON: CT CHEST WO 09/06/2022 7:55 AM FINDINGS: Lungs: No airspace consolidation. Pleural spaces: No pleural effusion. No pneumothorax. Heart/Mediastinum: CABG. The cardiac silhouette is upper limits of normal. Bones/joints: Median sternotomy wires. No displaced fracture. IMPRESSION: No acute findings. Impression new. Chronic findings as described. Dictated and Authenticated by: Ping Moon MD. Ordering:CHYNA Cr MD
[2023-01-01] MEDS: Doxycycline Hyclate 100 MG CAP PO (18:49)
[2023-01-01 19:06] VITALS: BP 119/80; PULSE 62; RESP 16; O2SAT 94
== END 2023-01-01 19:08 | disposition home or self-care (01) ==
PROVIDERS: Emergency Provider Registered Nurse Emergency; PCP Family Medicine
DX: J40 Bronchitis, not specified as acute or chronic (principal); J43.9 Emphysema, unspecified; D50.9 Iron deficiency anemia, unspecified; Z95.1 Presence of aortocoronary bypass graft; Z79.82 Long term (current) use of aspirin; Z20.822 Contact with and (suspected) exposure to COVID-19
CPT/HCPCS: 80053; 87637; 99283; 99284; 71045; 85025

== ENCOUNTER 2023-01-31 03:05 | Outpatient (CLI) | payer MEDICARE, OTHER, SELFPAY ==
[2023-01-31] MEDS: Inhaler, Assist Device 1 EACH MC (09:36)
[2023-01-31] MEDS: Albuterol HFA 18 GM 200 PUFF INH IH (09:36)
--- NOTE | 2023-01-31 11:18 | W.PFT ---
Date of service: 01/31/23 Time of Service: 07:58 Pulmonary Function Test Result Indications: Dyspnea Interpretation Spirometry: There is moderate airflow limitation. There is a significant bronchodilator response. Lung Volumes: There is hyperinflation and air trapping Diffusion Capacity: Normal diffusion Airway Pressure: Increased airways resistance Impression Moderate airflow obstruction with air trapping, a normal diffusion and a significant bronchodilator response. Clinical Correlation therefore is recommended.
== END 2023-01-31 03:06 | disposition home or self-care (01) ==
LOC: RT 03:05
PROVIDERS: PCP Family Medicine; Visit Provider Student in an Organized Health Care Education/Training Program
DX: J44.9 Chronic obstructive pulmonary disease, unspecified (principal)
CPT/HCPCS: 94060; 94726; 94729

== ENCOUNTER 2023-03-14 07:50 | Outpatient (CLI) | payer MEDICARE, OTHER, SELFPAY ==
--- NOTE | 2023-03-14 07:45 | RT.EKG_ITS ---
APPROVED REPORT Exam: Resting ECG Reason for Exam: CAD Patient Location: O HR:39 bpm ECG Measurements Heart Rate 39 AXIS SD 173 P 5 QRSd 160 QRS -11 QT 495 T 1 QTc 399 Conclusion Sinus bradycardia...rate< 50 Atrial premature complex...SV complex w/ short R-R interval Right bundle branch block...QRSd>120, terminal axis(90,270) Baseline wander in lead(s) V1
== END 2023-03-14 07:51 | disposition home or self-care (01) ==
LOC: DI.CARD 07:51
PROVIDERS: PCP Family Medicine; Visit Provider Internal Medicine Cardiovascular Disease
DX: I25.10 Atherosclerotic heart disease of native coronary artery without angina pectoris (principal); I49.3 Ventricular premature depolarization
CPT/HCPCS: 93010

== ENCOUNTER → 2023-03-14 10:55 | Outpatient (BNVA) | payer MEDICARE, OTHER, SELFPAY | PROVIDERS: PCP Family Medicine; Referring Provider Family Medicine; Visit Provider Internal Medicine Cardiovascular Disease | DX: R00.1 Bradycardia, unspecified (principal); I25.10 Atherosclerotic heart disease of native coronary artery without angina pectoris | CPT/HCPCS: 93005; 99203; 99214 ==

== ENCOUNTER 2023-03-16 09:52 | Outpatient (CLI) | payer MEDICARE, OTHER, SELFPAY ==
[2023-03-16 08:54] LABS: Abs Immature Grans 0.03 10^3/uL (0.0-0.06); Absolute Basophil Count 0.01 10^3/uL (0.0-0.2); Absolute Monocyte Count 0.91 10^3/uL (0.1-0.8); Absolute Neutrophil Count 1.01 10^3/uL (1.2-6.7); Basophils % 0.3; HCT 32.9 % (40.0-50.0); HGB 10.7 g/dL (13.5-17.5); Immature Grans % 0.9; Lymphocytes % 39.9; MCH 35.2 pg (27.0-33.0); MCHC 32.5 % (32.0-36.0); MCV 108 fL (80-95); MPV 11.2 fL (8.0-11.0); Monocytes % 27.9; RBC 3.04 10^6/uL (4.36-5.78); RDW 14.1 % (11.8-14.1); RDW-SD 55.9 fL; WBC 3.26 10^3/uL (4.4-10.8)
[2023-03-16 09:05] LABS: Platelet Count 99 10^3/uL (130-400)
[2023-03-16 09:14] LABS: ALT 20 U/L (16-63); AST 19 U/L (15-37); Albumin 3.7 g/dL (3.4-5.0); Alkaline Phosphatase 54 U/L (46-116); BUN 27 mg/dL (7-18); Bilirubin, Total 0.5 mg/dL (0.2-1.0); CREATININE 1.1 mg/dL (0.70-1.30); Calcium 9.7 mg/dL (8.5-10.1); Chloride 105 mmol/L (98-107); Estimated GFR 66.19 (mL/min/1.73m2); Glucose 103 mg/dL (74-106); Potassium 3.9 mmol/L (3.5-5.1); Sodium 139 mmol/L (136-145); Total Protein 7.4 g/dL (6.4-8.2)
== END 2023-03-16 09:53 | disposition home or self-care (01) ==
LOC: LBO 09:54
PROVIDERS: PCP Family Medicine; Visit Provider Internal Medicine Hematology & Oncology
DX: D61.818 Other pancytopenia (principal)
CPT/HCPCS: 36415; 80053; 85025

== ENCOUNTER 2023-06-01 11:11 | Outpatient (CLI) | payer MEDICARE, OTHER, SELFPAY ==
--- NOTE | 2023-06-01 09:27 | DI.RAD_ITS ---
Exam(s) XR CHEST 2V PA LATERAL EXAM: XR CHEST 2V PA LATERAL CLINICAL HISTORY: Productive cough, rhonchi on exam, R05.9. TECHNIQUE: 2D digital imaging was performed. COMPARISON: CR,XR XR PORTABLE CHEST AP from 01/01/2023 FINDINGS: 2 views: Again noted are sternotomy wires and evidence of previous CABG. Heart size is normal. The mediastinum is not widened. Lungs are clear. No infiltrates nor pleural effusions. No pulmonary edema. IMPRESSION: No acute pulmonary findings.Previous sternotomy/CABG again noted DATA REPOSITORY: RADIATION DOSE DELIVERED:
== END 2023-06-01 11:31 ==
LOC: DI 11:12
PROVIDERS: PCP Family Medicine; Visit Provider Family Medicine
DX: R05.9 Cough, unspecified (principal); I25.810 Atherosclerosis of coronary artery bypass graft(s) without angina pectoris
CPT/HCPCS: 71046

== ENCOUNTER 2023-06-06 04:19 | Outpatient (CLI) | payer MEDICARE, OTHER, SELFPAY ==
[2023-06-06 09:54] LABS: ALT 19 U/L (16-63); AST 17 U/L (15-37); Albumin 3.6 g/dL (3.4-5.0); Alkaline Phosphatase 57 U/L (46-116); Anion Gap 4.4 mmol/L (3-11); BUN 16 mg/dL (7-18); Bilirubin, Total 0.7 mg/dL (0.2-1.0); CO2 32.6 mmol/L (21.0-32.0); CREATININE 0.9 mg/dL (0.70-1.30); Calcium 9.2 mg/dL (8.5-10.1); Chloride 102 mmol/L (98-107); Estimated GFR 84.22 (mL/min/1.73m2); Glucose 96 mg/dL (74-106); Potassium 3.9 mmol/L (3.5-5.1); Sodium 139 mmol/L (136-145); Total Protein 7.5 g/dL (6.4-8.2)
[2023-06-06 19:35] LABS: PSA, Diagnostic 7.2 ng/mL (<=6.5)
[2023-06-07 09:15] LABS: Prealbumin 12 mg/dL (20-40)
== END 2023-06-06 04:20 | disposition home or self-care (01) ==
LOC: LBO 04:22
PROVIDERS: Nurse Practitioner Gerontology; PCP Family Medicine; Visit Provider Family Medicine
DX: N40.0 Benign prostatic hyperplasia without lower urinary tract symptoms (principal); R97.20 Elevated prostate specific antigen [PSA]; R63.4 Abnormal weight loss
CPT/HCPCS: 36415; 80053; 84134; 84153

== ENCOUNTER → 2023-06-12 12:48 | Outpatient (BNVA) | payer MEDICARE, OTHER, SELFPAY | PROVIDERS: PCP Family Medicine; Referring Provider Family Medicine; Visit Provider Urology | DX: R97.20 Elevated prostate specific antigen [PSA] (principal); J44.9 Chronic obstructive pulmonary disease, unspecified | CPT/HCPCS: 99214 ==

== ENCOUNTER → 2023-08-01 10:41 | Outpatient (BNVA) | payer MEDICARE, OTHER, SELFPAY | PROVIDERS: PCP Family Medicine; Referring Provider Family Medicine; Visit Provider Urology | DX: R97.20 Elevated prostate specific antigen [PSA] (principal) | CPT/HCPCS: 99213 ==

== ENCOUNTER 2023-08-16 18:39 | Emergency (ER) | payer MEDICARE, OTHER, SELFPAY ==
[2023-08-16 18:50] VITALS: BP 156/68; PULSE 63; RESP 20; TEMP 37; O2SAT 96
--- NOTE | 2023-08-16 19:01 | ED.GENADUL_ITS ---
Discharge Plan Disposition Patient Disposition: Home Discharge Details Clinical Impression: Decreased energy Primary Care Provider: Chinedu Vargas ED Provider: Larry Callejas Home Meds and New Rx's Prescriptions: Continued rosuvastatin [Crestor] 10 mg tablet 10 mg PO DAILY Patient Comments: pt takes only on monday and per report. TT multivitamin Tablet 1 tab PO QAM polyethylene glycol 3350 17 gram/dose powder 17 g PO DAILY Rx Instructions: Take 17 g once daily. memantine 10 mg tablet 10 mg PO HS Qty: 90 3RF Spiriva Respimat 2.5 mcg/actuation mist 2 inh inhalation QAM Qty: 12 6RF albuterol sulfate [Ventolin HFA] 90 mcg/actuation HFA aerosol inhaler 2 puff INHALATION PRN PRN (Reason: shortness of breath or wheezing) Qty: 25.5 6RF aspirin 81 mg Tablet,Delayed Release (Dr/Ec) 81 mg PO DAILY AM fenofibrate 150 mg Capsule 150 mg PO DAILY AM fluocinonide 0.05 % Ointment 1 applic TOPICAL PRN PRN [id number] oil 350-400 mg Capsule 1,000 cap PO DAILY AM acetaminophen 325 mg Tablet 650 mg PO PRN PRN Discharge Instructions Additional Instructions: You were seen in the emergency department for your chills and shortness of breath. Your x-ray showed no sign of a pneumonia. Your blood work showed no signs of damage to your heart. Your swab was negative for COVID. Your blood work shows no signs of damage to your kidneys. Please return to the emergency department if you develop worsening chills shortness of breath cough or fevers. HPI General Date/Time Provider Initiated Documentation: 08/16/23 19:01 . HPI Narrative: HPI This is an 83-year-old male with a remote history of CABG and anemia arriving emergency department via private vehicle with his [id number] in the setting of shortness of breath cough chills and decreased energy for the past day. Patient had an episode of diarrhea yesterday. Patient reports that 2 to 3 days ago he had a cough. He was able to cough up some phlegm. He has had some difficulty swallowing since then. He endorses some shortness of breath. He has never had a PE nor DVT. He has a remote history of a CABG. He endorses chills and decreased energy. He feels unsteady on his feet. He was dizzy earlier today. He denies fevers chest pain but does endorse shortness of breath. Patient reportedly generally wakes up at 4:30 AM and takes a nap at 9:30 AM. This morning he went to take a nap but did not wake up till later that day. He had an isolated episode of diarrhea. He has not taken any falls. Exam General: Well-appearing in no acute distress speaking in complete sentences. Head: Normocephalic, atraumatic. Eye: Extraocular eye movements intact. No conjunctival injection. No scleral icterus. Ear, nose, mouth, throat: Grossly normal inspection. Normal voice, handling secretions normally. Neck: Trachea midline. Cardiovascular: Well-perfused distal extremities. Respiratory: Nonlabored respiration. Gastrointestinal: Nondistended abdomen. Musculoskeletal: No edema. Moving all 4 extremities spontaneously. Skin: Normal for age and race, grossly normal temperature and turgor. No acute rash. Neurologic: Alert and appropriate, no apparent acute deficits. GCS 15. Cranial nerves II through XII intact grossly. No pronator drift. 5 out of 5 bilateral upper lower extremity strength. No nystagmus. Psychiatric: Mood and manner are appropriate. Grooming and personal hygiene are appropriate. MDM This is an overall very well-appearing normothermic and not tachycardic 83-year-old male with increased blood pressure and generalized weakness concerning for viral etiology versus acute electrolyte abnormalities versus anemia. No chest pain and given no syncope my suspicion is low for dysrhythmias with ACS. Will order a twelve-lead ECG to assess for any ischemia. Given no chest pain will defer troponin testing. I considered CVA however the patient is neurologically intact and I do not feel that he is a candidate for tPA based on his lack of neurological deficits. I considered posterior circulation stroke in particular given his reported unsteadiness however he had no nystagmus so did not apply the hints exam. I considered pulmonary embolism however the patient was not having any chest pain nor any tachypnea nor hypoxia so I did not send a D-dimer. Patient has had elevated blood pressures in the past. He is not on any antihypertensive at the moment. We will update vitals treat mild headache with acetaminophen and send a COVID influenza and RSV swab. Given soft nontender abdomen and no recurrent diarrhea nor fevers my suspicion for C. di fficile is low. No left lower quadrant tenderness to suggest diverticulitis. No right lower quadrant tenderness to suggest appendicitis. Patient has had marked bradycardia in the past. He is certainly could have been bradycardic causing his symptoms. He is not bradycardic moment and has no signs of advanced heart block on ECG. 8:37 PM Basic metabolic panel showing no EMRE. Mild hyperglycemia no anion gap. Normal bicarbonate??not consistent with DKA. CBC showing mild macrocytic anemia improved compared to prior. thrombocytopenia. No leukocytosis. Reassuring negative troponin. COVID-negative. Chest x-ray read as negative. 8:43 PM Labs reassuring. Blood pressure improved without intervention in the emergency department. Patient had no hypoxia in the ED. I met with the patient and he felt similar. I advised that I did not have a clear diagnosis. I also advised that he could certainly be earlier on in a more dangerous process. I advocated ED return if he did not feel markedly improved in the next several days. Otherwise I asked health unit receptionist Susan to have the patient seen later this week by his primary care provider. He understood his return indications so we will proceed with an empiric trial of expectant outpatient management. Chronic conditions affecting the care of the patient: History obtained from an outside historian: External record review: [facility] [place] EMR Medications: I independently interpreted the following results: Chest x-ray: No acute process ECG Normal sinus rhythm at a rate of 68 with right bundle branch block pattern left axis deviation??bifascicular block. CT and QTc within normal limits. No acute injury pattern. Rate has increased since prior. Prior dated earlier this year. Social determinants of health affecting disposition: Management discussed with: N/A Treatment/interventions considered: N/A Response to therapies provided: Improved blood pressure without intervention Related Data Home Medications Medication Instructions Recorded Confirmed acetaminophen 325 mg tablet 650 mg PO PRN PRN 07/24/22 08/01/23 aspirin 81 mg tablet,delayed 81 mg PO DAILY AM 07/24/22 08/01/23 release fenofibrate 150 mg capsule 150 mg PO DAILY AM 07/24/22 08/01/23 fluocinonide 0.05 % topical 1 applic topical PRN PRN 07/24/22 08/01/23 ointment [id number]-mee-other [id number] 1,000 cap PO DAILY AM 07/24/22 08/01/23 oil 350 mg- 400 mg capsule multivitamin 1 tab PO QAM 08/02/22 08/01/23 polyethylene glycol 3350 17 17 g PO DAILY 08/25/22 08/01/23 gram/dose oral powder memantine 10 mg tablet 10 mg PO HS #90 tabs 09/22/22 08/01/23 tiotropium bromide 2.5 2 inh inhalation QAM #12 grams 02/17/23 08/01/23 mcg/actuation mist for inhalation (Spiriva Respimat) albuterol sulfate 90 mcg/actuation 2 puff inhalation PRN PRN 04/27/23 08/01/23 aerosol inhaler (Ventolin HFA) shortness of breath or wheezing #25.5 grams rosuvastatin 10 mg tablet (Crestor) 10 mg PO DAILY 06/12/23 08/01/23 Previous Rx's Medication Instructions Recorded memantine 10 mg tablet 10 mg PO HS #90 tabs 09/22/22 tiotropium bromide 2.5 2 inh inhalation QAM #12 grams 02/17/23 mcg/actuation mist for inhalation (Spiriva Respimat) albuterol sulfate 90 mcg/actuation 2 puff inhalation PRN PRN 04/27/23 aerosol inhaler (Ventolin HFA) shortness of breath or wheezing #25.5 grams Allergies Allergy/AdvReac Type Severity Reaction Status Date / Time No Known Allergies Allergy Verified 08/16/23 18:55 General Stated Complaint: [facility]Medical PATRICK: 3 PFSH All Active Problems (Updated 08/16/23 @ 20:45 by Larry Callejas MD) Decreased energy (Acute) Osteoarthritis of hips, bilateral (Acute) Cytopenia (Acute ~2008) no intervention to date per note 03/16/23. Personal history of nicotine dependence (Acute) Vocal fatigue (Acute) Bradycardia by electrocardiogram (Acute) 09/30/[address] Meneses [facility] [place] [facility] who states asymptomatic and will follow w him Unintentional weight loss (Acute) Lung nodule seen on imaging study (Acute) Pancytopenia (Chronic) per [facility] [place] note 03/16/23, if ANC gets below 500 consider repeating bone marrow bx. Vitamin D deficiency (Acute) PVC (premature ventricular contraction) (Acute) Prediabetes (Acute) Anemia (Chronic) Macrocytosis (Acute) Leukopenia (Acute) Benign prostatic hyperplasia (Chronic) Facet arthropathy, cervical (Acute) Insomnia due to medical condition (Acute) Myocardial infarct, old (Acute) GERD (gastroesophageal reflux disease) (Chronic) Obstructive sleep apnea of adult (Acute) COPD (chronic obstructive pulmonary disease) (Chronic) CAD (coronary artery disease) (Chronic) Depression (Chronic) Arthritis (Acute) Hyperlipidemia (Acute) Elevated PSA (Acute) Medical History Colonic polyp Coronary arteriosclerosis Diverticulosis Eczema left leg Emphysema of lung Surgical History H/O cataract (~08/08/19) Done out in [facility]. H/O vasectomy History of appendectomy History of coronary artery bypass graft (~06/01/00) 20 years prior History of hernia repair (~11/16/09) Right Groin S/P tonsillectomy and adenoidectomy Family History Brother Diabetes Heart disease Paternal Uncle Diabetes Heart disease Stroke Father Heart disease Social History Smoking/Tobacco Use Status: Former Tobacco Use tobacco type: cigarettes Quit Date: 05/31/00 Tobacco: How many years used: 44 Quit status: quit date established (05/31/2000) Smoking risk assessment performed?: Yes Alcohol Intake: never Drug use: Never Substance use type: does not use Adopted: No Caregiver/Support person: No Foster care: No Household members: family and children Housing: house Number of Children: 2 number of grandchildren: 3 Communication Needs: Hard of Hearing and Corrective Lenses Education Level: high school Do you need help understanding health information?: Often current occupation: RETIRED Pets and animals: Yes (1) Pets and animals: dog(s) Sexually active: No Do you think of yourself as: straight/heterosexual Current gender identity: male What is your relationship status?: How often do you talk on the phone with friends or family?: three or more times per week How often do you get together with friends or relatives?: decline to answer Do you belong to any clubs or organized social groups?: yes Panel score (0-1 are the most socially isolated patients): 2 What type of physical activity do you participate in: decline to answer Indira/Church: Gn[employer]ist Special indira needs: No Seatbelt use: always Drive intox or ride w/intox transit mixer driver: No Do you feel safe at home: Yes Do you feel safe in your relationship?: Yes Course Vital Signs Vital signs: Vital Signs Temperature 37.0 C 08/16/23 18:50 Pulse 63 08/16/23 18:50 Respiratory Rate 20 08/16/23 18:50 Blood Pressure 156/68 H 08/16/23 18:50 Pulse Oximetry 96 08/16/23 18:50 Temperature 37.0 C 08/16/23 18:50 Pulse 63 08/16/23 18:50 Respiratory Rate 20 08/16/23 18:50 Respiratory Effort Normal 08/16/23 18:56 Blood Pressure 156/68 H 08/16/23 18:50 Blood Pressure Position Sitting 08/16/23 18:50 Pulse Oximetry 96 08/16/23 18:50 Oxygen Delivery Method Room Air 08/16/23 18:50 Oxygen Flow Rate 0 08/16/23 18:50
--- NOTE | 2023-08-16 19:15 | RT.EKG_ITS ---
APPROVED REPORT Exam: Resting ECG Reason for Exam: weakness Patient Location: E HR:68 bpm ECG Measurements Heart Rate 68 AXIS AR 182 P 49 QRSd 153 QRS -37 QT 430 T 5 QTc 434 Conclusion Sinus rhythm...normal P axis, V-rate 60- 99 Ventricular premature complex...V complex w/ short R-R interval Right bundle branch block...QRSd>120, terminal axis(90,270) Normal sinus rhythm at a rate of 68 with right bundle branch block pattern left axis deviation?b ifascicular block. AR and QTc within normal limits. No acute injury pattern. Rate has increased si nce prior. Prior dated earlier this year.
--- NOTE | 2023-08-16 19:15 | DI.RAD_ITS ---
Exam(s) XR CHEST 2V PA LATERAL EXAM: XR CHEST 2V PA LATERAL CLINICAL HISTORY: Shortness of breath cough TECHNIQUE: 2D digital imaging was performed of the chest. Two images were obtained. PA and lateral views were obtained. COMPARISON: CR XR CHEST 2V PA LATERAL from 06/01/2023 FINDINGS: MEDIASTINUM: Normal. HEART: Status post CABG. Heart size is within normal limits. PULMONARY VASCULATURE: Normal. LUNGS: No focal consolidating infiltrates. PLEURAL SPACE: No pleural effusion or pneumothorax. BONE:Within normal limits for the patient's age. OTHER FINDINGS:Normal. IMPRESSION: No acute pulmonary findings. DATA REPOSITORY: RADIATION DOSE DELIVERED:
[2023-08-16] MEDS: Acetaminophen 500 MG TAB 1000 MG PO (19:34)
[2023-08-16 19:44] LABS: Abs Immature Grans 0.11 10^3/uL (0.0-0.06); Absolute Basophil Count 0.01 10^3/uL (0.0-0.2); Absolute Lymphocyte Count 0.97 10^3/uL (1.2-3.4); Absolute Neutrophil Count 3.84 10^3/uL (1.2-6.7); Basophils % 0.2; HCT 33.9 % (40.0-50.0); Immature Grans % 1.7; Lymphocytes % 14.9; MCH 35.1 pg (27.0-33.0); MCHC 32.4 % (32.0-36.0); MCV 108 fL (80-95); MPV 12.2 fL (8.0-11.0); Monocytes % 24.5; Neutrophils % 58.7; RBC 3.13 10^6/uL (4.36-5.78); RDW 13.6 % (11.8-14.1); RDW-SD 54.6 fL; WBC 6.53 10^3/uL (4.4-10.8)
[2023-08-16 19:53] LABS: Source Nasal/Nares
[2023-08-16 19:59] LABS: BUN 22 mg/dL (7-18); CREATININE 1.1 mg/dL (0.70-1.30); Chloride 105 mmol/L (98-107); Estimated GFR 66.19 (mL/min/1.73m2); Glucose 117 mg/dL (74-106); Sodium 140 mmol/L (136-145); Troponin I < 50 ng/L (<or=60)
[2023-08-16 20:02] VITALS: BP 148/63; PULSE 55; O2SAT 98
--- NOTE | 2023-08-16 20:06 | DI.VRAD_ITS ---
PROCEDURE INFORMATION: Exam: XR Chest Exam date and time: 08/16/2023 7:57 PM Age: 83 years old Clinical indication: Fever; Prior surgery; Surgery date: 6+ months; Surgery type: Cabg TECHNIQUE: Imaging protocol: Radiologic exam of the chest. Views: 2 views. COMPARISON: CR XR CHEST 2V PA LATERAL 06/01/2023 9:15 AM FINDINGS: Lungs: Unremarkable. No consolidation. Pleural spaces: Unremarkable. No pleural effusion. No pneumothorax. Heart/Mediastinum: Grossly stable. Bones/joints: Unremarkable. IMPRESSION: No acute findings. Dictated and Authenticated by: Guillermo Ellis MD. Ordering:KIRSTY Juarez MD
[2023-08-16 20:27] LABS: COVID-19 PCR Negative (Negative)
[2023-08-16 20:29] LABS: Diff Comment Diff Reviewed; Macrocytosis 2+; Platelet Count 78 10^3/uL (130-400)
--- NOTE | 2023-08-17 02:23 | NUR.NOTE ---
Referral faxed to [facility] (Dr Vargas) to f/u this week for decreased energy.Nursing Note:
== END 2023-08-16 21:23 | disposition home or self-care (01) ==
PROVIDERS: Emergency Provider Emergency Medicine; PCP Family Medicine
DX: R53.83 Other fatigue (principal)
CPT/HCPCS: 80048; 87635; 93005; 99283; 71046; 84484; 85025; 93010

== ENCOUNTER 2023-09-07 10:48 | Outpatient (CLI) | payer MEDICARE, OTHER, SELFPAY ==
[2023-09-07 09:44] LABS: Abs Immature Grans 0.03 10^3/uL (0.0-0.06); Absolute Basophil Count 0.02 10^3/uL (0.0-0.2); Absolute Lymphocyte Count 1.87 10^3/uL (1.2-3.4); Absolute Monocyte Count 1.14 10^3/uL (0.1-0.8); Absolute Neutrophil Count 1.28 10^3/uL (1.2-6.7); Basophils % 0.5; HCT 32.1 % (40.0-50.0); HGB 10.4 g/dL (13.5-17.5); Immature Grans % 0.7; Lymphocytes % 43.1; MCH 34.8 pg (27.0-33.0); MCHC 32.4 % (32.0-36.0); MCV 107 fL (80-95); MPV 12.2 fL (8.0-11.0); Monocytes % 26.3; Neutrophils % 29.4; RBC 2.99 10^6/uL (4.36-5.78); RDW 13.3 % (11.8-14.1); RDW-SD 52.6 fL; WBC 4.34 10^3/uL (4.4-10.8)
[2023-09-07 09:52] LABS: Platelet Count 88 10^3/uL (130-400)
[2023-09-07 09:53] LABS: Diff Comment Diff Reviewed; Macrocytosis 2+
[2023-09-07 09:54] LABS: ALT 17 U/L (16-63); AST 18 U/L (15-37); Albumin 3.9 g/dL (3.4-5.0); Alkaline Phosphatase 52 U/L (46-116); Anion Gap 5.8 mmol/L (3-11); BUN 19 mg/dL (7-18); Bilirubin, Total 0.5 mg/dL (0.2-1.0); CO2 30.2 mmol/L (21.0-32.0); Calcium 9.7 mg/dL (8.5-10.1); Chloride 100 mmol/L (98-107); Estimated GFR 74.21 (mL/min/1.73m2); Glucose 97 mg/dL (74-106); Potassium 3.7 mmol/L (3.5-5.1); Sodium 136 mmol/L (136-145); Total Protein 7.6 g/dL (6.4-8.2)
== END 2023-09-07 10:49 | disposition home or self-care (01) ==
LOC: LBO 10:48
PROVIDERS: PCP Family Medicine; Visit Provider Internal Medicine Hematology & Oncology
DX: D61.818 Other pancytopenia (principal)
CPT/HCPCS: 36415; 80053; 85025